=== PATIENT | male | born 1960 | race Caucasian/White ===

== ENCOUNTER 2020-09-22 15:11 | Emergency (ER) | payer OTHER ==
[2020-09-22 15:17] VITALS: BP 135/93; PULSE 79
[2020-09-22] MEDS: Ondansetron 4 MG Tab.DIS PO ONE (15:30)
--- NOTE | 2020-09-22 15:33 | EDM.PDOC ---
ED HPI GENERAL MEDICAL PROBLEM - General Chief Complaint: Upper Extremity Injury/Pain Stated Complaint: fall Time Seen by Provider: 09/22/20 15:19 Source of Information: Reports: Patient History Limitations: Reports: No Limitations - History of Present Illness INITIAL COMMENTS - FREE TEXT/NARRATIVE: Patient comes emergency department today referred here from the clinic for a fa ll and a left shoulder injury. Just prior to arrival the patient was at work when he was getting out of the cab of a [employer] when he slipped and fell landing on the side of the [place]teiro he fell about 2 to 3 feet he states. He is unsure if he hit his head. He is unsure if he had a loss of consciousness. He has no headache visual acuity changes vertigo. No head neck or back pain. He complains only of pain to the left posterior shoulder. It hurts for him to lift up his arm. He has no chest pain no shortness of breath or difficulty breathing. He does have some nausea without vomiting. No weakness dizziness lightheadedness. No vertigo. No double vision. No abdominal pain he does have nausea without vomiting. He denies any other injury to his upper or lower extremities. He denies any paresthesias of his upper or lower extremities. Denies any change in the functionality of his upper or lower extremities other than it is quite painful for him to move his left arm. NO COVID symptoms no COVID exposure. Left Shoulder Pain Score (Numeric/FACES): 5 - Related Data Allergies Allergy/AdvReac Type Severity Reaction Status Date / Time No Known Allergies Allergy Verified 09/22/20 15:19 Home Meds: Home Meds Acetaminophen/HYDROcodone [[place] 325-5 MG] 1 tab PO Q6H PRN #12 tablet 09/22/20 [Rx] Review of Systems - Review of Systems Review Of Systems: Comprehensive ROS is negative, except as noted in HPI. ED EXAM, GENERAL - Physical Exam Exam: See Below Exam Limited By: No Limitations General Appearance: Alert, WD/WN, No Apparent Distress Eye Exam: Bilateral Eye: EOMI, PERRL Ears: Normal External Exam, Normal Canal, Hearing Grossly Normal, Normal TMs Ear Exam: Bilateral Ear: TM normal Nose: Normal Inspection, Normal Mucosa, No Blood Throat/Mouth: Normal Inspection, Normal Lips, Normal Teeth, Normal Gums, Normal Oropharynx, Normal Voice, No Airway Compromise Head: Atraumatic, Normocephalic Neck: Normal Inspection, Supple, Non-Tender, Full Range of Motion. No: Tender Lateral, Tender Midline (Palpation down the postierior midline spine does not illicit any step offs tenderness or bony deformity. The patient denies any neck pain or injury. ) Respiratory/Chest: No Respiratory Distress, Lungs Clear, Normal Breath Sounds, No Accessory Muscle Use, Chest Non-Tender Cardiovascular: Normal Peripheral Pulses, Regular Rate, Rhythm Peripheral Pulses: 2+: Radial (L), Radial (R), Posterior Tibial (L), Posterior Tibial (R), Dorsalis Pedis (L), Dorsalis Pedis (R) GI/Abdominal: Normal Bowel Sounds, Non-Tender (Male) Exam: Deferred Rectal (Males) Exam: Deferred Back Exam: Normal Inspection, Full Range of Motion. No: Paraspinal Tenderness (Palpation down the posterior midline spine, there is no bony deformity step offs or other signs of trauma. Other than as noted to the extremities posterior left shoulder. ), Vertebral Tenderness Extremities: Normal Inspection (Lower extremities are unremarkable. Right upper extremity is unremarkable. The clavicle of the left shoulder is nontender no bony deformity. In the mid left posterior shoulder in the area of the scapula more inferiorly tender there is a small abrasion that is very superficial. There is no bruising swelling small amount of tenderness. There is squaring as to the left shoulder when compared to the right shoulder. There is no overt bony deformity the rest of the shoulder is atraumatic. ), Non-Tender, Normal Capillary Refill Neurological: Alert, Oriented, CN II-XII Intact, Normal Cognition, Normal Gait, No Motor/Sensory Deficits Psychiatric: Normal Affect, Normal Mood Skin Exam: Warm, Dry, Intact, Normal Color, No Rash Course - Vital Signs Last Recorded V/S: Last Vital Signs Temp 97.3 F 09/22/20 15:11 Pulse 79 09/22/20 15:11 Resp 18 09/22/20 15:11 BP 135/93 H 09/22/20 15:11 Pulse Ox 96 09/22/20 15:11 - Orders/Labs/Meds Labs: Laboratory Tests 09/22/20 09/22/20 09/22/20 Range/Units 17:29 17:29 17:29 WBC 15.4 H (4.0-10.0) x10^3/uL RBC 5.22 (4.5-6.0) x10^6/uL Hgb 15.4 (14.0-18.0) g/dL Hct 45.4 (40.0-52.0) % MCV 87.0 (78.0-93.0) fL MCH 29.5 (26.0-32.0) pg MCHC 33.9 (32.0-36.0) g/dL RDW Coeff of Dante 13.1 (10.0-15.0) % Plt Count 222 (130-400) x10^3/uL Add Manual Diff Yes Neutrophils % (Manual) 88 H (50-80) % Band Neutrophils % 1 (0-6) % Lymphocytes % (Manual) 5 L (25-50) % Reactive Lymphs % 1 H (0) % Monocytes % (Manual) 3 (2-11) % Eosinophils % (Manual) 2 (0-4) % Vacuolated Monocytes Rare Platelet Estimate Adequate PT 10.5 (9.9-12.5) SEC INR 0.9 L (2.0-3.5) APTT 22.5 L (25.6-32.8) SEC Sodium 142 (136-145) mmol/L Potassium 4.0 (3.5-5.1) mmol/L Chloride 104 (98-107) mmol/L Carbon Dioxide 30 (21-32) mmol/L Anion Gap 12.0 (5-15) mmol/L BUN 20 H (7-18) mg/dL Creatinine 1.4 H (0.70-1.30) mg/dL Est Cr Clr Drug Dosing TNP Estimated GFR (MDRD) 52 Glucose 126 H (74-106) mg/dL Calcium 8.5 (8.5-10.1) mg/dL Corrected Calcium 8.58 (8.5-10.1) mg/dL Total Bilirubin 0.5 (0.2-1.0) mg/dL AST 27 (15-37) U/L ALT 34 (16-63) U/L Alkaline Phosphatase 67 (46-116) U/L Total Protein 7.2 (6.4-8.2) g/dL Albumin 3.9 (3.4-5.0) g/dL Globulin 3.3 Albumin/Globulin Ratio 1.18 Meds: Medications Discontinued Medications Generic Name Dose Route Start Last Admin Trade Name Luke PRN Reason Stop Dose Admin Acetaminophen 1,000 mg 09/22/20 16:17 09/22/20 16:31 Tylenol Extra Strength PO 09/22/20 16:18 1,000 mg ONETIME ONE Administration Hydrocodone Bitart/Acetaminophen 1 packet 09/22/20 17:17 Take Home: Acetam/Hydrocodon 325-5 Mg, 5 Pack PO 09/22/20 17:18 ONETIME ONE Hydrocodone Bitart/Acetaminophen 1 packet 09/22/20 18:25 09/22/20 19:11 Take Home: Acetaminophen/Hydrocodone 325-10mg PO 09/22/20 18:26 1 packet ONETIME ONE Administration Diphenhydramine HCl 25 mg 09/22/20 17:56 09/22/20 18:00 Benadryl IVPUSH 09/22/20 17:57 25 mg ONETIME ONE Administration Hydromorphone HCl 1 mg 09/22/20 17:17 Dilaudid IM 09/22/20 17:18 ONETIME ONE Hydromorphone HCl 1 mg 09/22/20 17:24 09/22/20 17:33 Dilaudid IVPUSH 09/22/20 17:25 1 mg ONETIME ONE Administration Lactated Ringer's 1,000 mls @ 999 mls/hr 09/22/20 18:29 09/22/20 18:30 Ringers, Lactated IV 09/22/20 19:29 999 mls/hr ONETIME ONE Administration Iopamidol 100 ml 09/22/20 18:07 09/22/20 18:20 Isovue-300 (61%) IVPUSH 09/22/20 18:08 100 ml ONETIME ONE Administration Ondansetron HCl 4 mg 09/22/20 15:18 09/22/20 15:30 Zofran Odt PO 09/22/20 15:19 4 mg ONETIME ONE Administration Ondansetron HCl 4 mg 09/22/20 17:56 09/22/20 18:05 Zofran IV 09/22/20 17:57 4 mg ONETIME ONE Administration Ondansetron HCl 1 packet 09/22/20 18:25 09/22/20 19:11 Take Home: Ondansetron Odt 4 Mg, 2 Tab Pack PO 09/22/20 18:26 1 packet ONETIME ONE Administration Sodium Chloride 10 ml 09/22/20 17:24 Saline Flush FLUSH ASDIRECTED PRN Keep Vein Open - Radiology Interpretation Free Text/Narrative:: 3 of the left shoulder shows a complex left scapular fracture involving the body and blade of the scapula. Recommend CT of the chest with arterial phase enhancement due to the large amount of force it takes to cause a scapular fract ure. CT scan of the left clavicle per radiology shows complex scapular fracture. There is no pulmonary parenchymal contusion or pneumothorax seen there is no articular involvement of the glenoid fossa. The complex fracture of the scapula primarily involves the infra glenoid blade of the scapula. - Re-Assessments/Exams Free Text/Narrative Re-Assessment/Exam: 09/22/20 17:28 initially the patient was only given tylenol. Zofran for nausea. Xray of the left shoulder was quite delayed in being read and then finally revealed a complex left scapula fracture recommend a CT contrast chest due to the concerns of the high force it takes to cause a scapula fracture. IV NS lock. Labs drawn. Dilaudid 1mg IVP CT chest with contrast ordered. 09/22/20 18:28 CBC with a mild elevation of white blood cell count at 15.4, hemoglobin 15.4 and a platelets of 222. CMP with an elevation of creatinine of 1.4 and a BUN of 20. 09/22/20 18:48 I did review his [facility] chart there is multiple provider notes but there is no laboratory evaluation to compare his kidney function to. He did have some nausea and vomiting with the dilaudid benadryl and zofran with resolution. A shoulder immobilizer was placed. I discussed the findings of the isolated scapula fracture with the patient without any other findings. We will place in an arm sling and have him follow up with ortho in [place] next week. HE is comfortable with this plan and his questions answered. Departure - Departure Time of Disposition: 18:57 Disposition: Home, Self-Care 01 Clinical Impression: Scapula fracture Qualifiers: Encounter type: initial encounter Scapula location: unspecified part of scapula Fracture type: closed Laterality: left Qualified Code(s): S42.102A - Fracture of unspecified part of scapula, left shoulder, initial encounter for closed fracture - Discharge Information Prescriptions: Acetaminophen/HYDROcodone [[place] 325-5 MG] 1 tab PO Q6H PRN #12 tablet PRN Reason: Pain Instructions: How To Use a Sling, [id number], Pain Medicine Instructions, [id number] Referrals: PCP,None [Primary Care Provider] - Forms: ED Department Discharge Additional Instructions: Tylenol and or Ibuprofen as needed for pain. Ice to the sore areas. Sling to the shoulder at all times. Okay to take off to shower. Zofran 1 tablet every 6 hrs as needed for nausea. Starter pack from the ED sent home. Contact your clinic tomorrow and make an appointment with ortho for 1 week. If pain not controlled with above. [place] 1 tablet every 6 hrs with food as needed for pain. Caution sedation. Do not take Tylenol with this medication as there is Tylenol already in it. Starter pack from the ED and RX sent to the pharmacy. Return to the ED if new or worsening symptoms. Sepsis Event Note (ED) - Evaluation Sepsis Screening Result: No Definite Risk
[2020-09-22] MEDS: Acetaminophen 500 MG Tab PO ONE (16:31)
[2020-09-22] MEDS ORDERED: Take Home: Acetaminophen/HYDROcodone 325-5 MG, 5 Tab Pack PO ONE (17:17)
[2020-09-22] MEDS ORDERED: HYDROmorphone 1 MG/ML Syringe IM ONE (17:17)
--- NOTE | 2020-09-22 17:22 | CR ---
[id number] RAD/RAD Shoulder Left 2V Min EXAM: RAD Shoulder Left 2V Min CLINICAL DATA: TRAUMA COMPARISON: NO PREVIOUS SIMILAR EXAM IS AVAILABLE. FINDINGS: A complex left scapular fracture is seen involving the body and blade of the scapula Contrast CT would be helpful to elucidate the details of the fracture. IMPRESSION: COMPLEX LEFT SCAPULAR FRACTURE TYPICALLY SCAPULAR FRACTURES ASSOCIATED WITH THE BLUNT FORCE NECESSARY ARE ASSOCIATED WITH VASCULAR INJURIES A CONTRAST CT OF THE CHEST WITH ARTERIAL PHASE ENHANCEMENT WOULD BE HELPFUL INCLUDING THE LEFT SCAPULA Devin Huston MD 09/22/20 [id number] Thank you for allowing us to participate in the care of your patient.
[2020-09-22] MEDS ORDERED: Sodium Chloride 0.9% 10 ML Syringe FLUSH PRN (17:24)
[2020-09-22] MEDS: HYDROmorphone 1 MG/ML Syringe IVPUSH ONE (17:33)
[2020-09-22 17:58] LABS: PTT,PARTIAL THROMBOPLSTIN TIME 22.5 SEC (25.6-32.8)
[2020-09-22] MEDS: diphenhydrAMINE 50 MG/ML SDV IVPUSH ONE (18:00)
[2020-09-22 18:02] LABS: CHLORIDE,CL 104 mmol/L (98-107); SODIUM,NA 142 mmol/L (136-145)
[2020-09-22] MEDS: Ondansetron 4 MG/2 ML SDV IV ONE (18:05)
[2020-09-22] MEDS: Iopamidol 612 MG/ML 100 ML Bottle IVPUSH ONE (18:20)
[2020-09-22] MEDS: Lactated Ringers 1,000 ML IV ONE (18:30)
--- NOTE | 2020-09-22 18:47 | CT ---
[id number] CT/CT Chest W IV Exam: CT Chest W IV Clinical Data: SCAPULAR FRACTURE COMPARISON: CORRELATION IS MADE WITH THE EARLIER PLAIN FILM FINDINGS: There is no extravasation of vascular contrast An arterial phase study was achieved The complex fracture of the scapula primarily involves the infraglenoid blade of the scapula There is no articular involvement of the glenoid fossa There is asymmetric enlargement of the left infraspinous and subscapularis muscles There is no pulmonary parenchymal contusion or pneumothorax seen There is no pleural effusion seen IMPRESSION: NO VASCULAR INJURY COMPLEX SCAPULAR FRACTURE Devin Huston MD 09/22/20 [id number] Thank you for allowing us to participate in the care of your patient.
[2020-09-22] MEDS: Take Home: Ondansetron 4 MG Tab.DIS, 2 Tab Pack PO ONE (19:11)
[2020-09-22] MEDS: Take Home: Acetaminophen/HYDROcodone 325-10 MG, 5 Tab Pack PO ONE (19:11)
== END 2020-09-22 19:15 | disposition home or self-care (01) ==
LOC: VM.ED 15:11
DX: S42.112A Displaced fracture of body of scapula, left shoulder, initial encounter for closed fracture (principal); D72.829 Elevated white blood cell count, unspecified; W17.89XA Other fall from one level to another, initial encounter; Y92.89 Other specified places as the place of occurrence of the external cause; Y99.0 Civilian activity done for income or pay
CPT/HCPCS: 71260; 73030-LT; 80053; 85025; 85610; 85730; 96374; 96375; 99284; 99284-25; A9270-GY; J1170; J1200; J2405; J7120; Q9967